=== PATIENT | male | born 1965 | race Two or more races ===

== ENCOUNTER 2021-01-23 11:50 | Emergency (ER) | payer OTHER ==
[~2021-01-23] VITALS: Ht 172.7 cm; Wt 86.2 kg
[~2021-01-23 11:50] MED LIST: IBUP100T38; OXYC5POW
[2021-01-23 12:12] VITALS: BP 148/79
--- NOTE | 2021-01-23 12:15 | NUR ---
PATIENT BIBS WITH C/O HEMORRHOIDS. PATIENT AWAKE, ALERT X4. NO SIGNS OF RESPIRATORY DISTRESS NOTED. RESPIRATIONS EVEN AND UNLABORED. AWAITING MD SOTO.
[2021-01-23] MEDS ORDERED: HYDR25SU33 RC (13:11)
[2021-01-23] MEDS ORDERED: DOCU-141 PO (13:11)
--- NOTE | 2021-01-23 13:21 | NUR ---
Patient discharged to home in stable condition. Written and verbal after care instructions given. Patient verbalizes understanding of instruction.
== END 2021-01-23 13:22 | disposition home or self-care (01) ==
LOC: ER 11:52
DX: K64.4 Residual hemorrhoidal skin tags (principal)

== ENCOUNTER 2021-03-22 17:48 | Emergency (ER) | payer OTHER ==
[~2021-03-22] VITALS: Ht 172.7 cm; Wt 86.2 kg
[~2021-03-22 17:48] MED LIST changes: +DOCU-141 PO; +HYDR25SU33 RC
[2021-03-22] MEDS ORDERED: NA PHOS,M-B/NA PHOS,DI-BA 1 EA ENEMA RC ONE ×2 (19:00→19:08)
[2021-03-22] MEDS ORDERED: MAGNESIUM HYDROXIDE 30 ML UDC PO ONE (19:00)
[2021-03-22] MEDS ORDERED: MAGNESIUM HYDROXIDE 30 ML UDC ONE (19:05)
--- NOTE | 2021-03-22 19:40 | NUR ---
ABD PAIN & CONSTIPATION X 4 DAYS PER PT. REPORTS HISTORY OF CONSTIPATION. PT IS ON MONITOR AND ALL VSS. MD WAS AT BEDSIDE FOR EVAL.
[2021-03-22] MEDS ORDERED: BISA-79 PO (20:32)
[2021-03-22 20:39] VITALS: BP 145/70
--- NOTE | 2021-03-22 20:39 | NUR ---
Patient discharged to home in stable condition. Written and verbal after care instructions given. Patient verbalizes understanding of instruction.
== END 2021-03-22 20:40 | disposition home or self-care (01) ==
LOC: ER 18:08
DX: K59.00 Constipation, unspecified (principal)

== ENCOUNTER 2023-09-06 18:57 | Emergency (ER) | payer OTHER ==
[~2023-09-06] VITALS: Ht 177.8 cm; Wt 113.4 kg
[~2023-09-06 18:57] MED LIST changes: +BISA-79 PO
[2023-09-06 21:21] VITALS: BP 134/88; TEMP 98; O2SAT 98
== END 2023-09-06 21:22 | disposition home or self-care (01) ==
LOC: ER 19:05
DX: F10.129 Alcohol abuse with intoxication, unspecified (principal); Z79.899 Other long term (current) drug therapy; Z88.1 Allergy status to other antibiotic agents; Y90.0 Blood alcohol level of less than 20 mg/100 ml
CPT/HCPCS: 82962-TC

== ENCOUNTER 2024-09-08 04:13 | Emergency (ER) | payer OTHER ==
[~2024-09-08] VITALS: Ht 175.3 cm; Wt 97.5 kg
[2024-09-08] MEDS ORDERED: IOHEXOL-350 100 ML VIAL IV ONE (04:44)
[2024-09-08] MEDS ORDERED: CT SWABBABLE VALVE TRANS SET 1 EA INFUS.SET MC ONE (04:44)
[2024-09-08] MEDS ORDERED: IV NS 0.9% 250 ML IV ONE (04:44)
[2024-09-08 06:00] LABS: CARBON DIOXIDE 24 mmol/L (21-32); CHLORIDE 107 mmol/L (98-107); POTASSIUM 3.8 mmol/L (3.5-5.1); SODIUM SERUM 140 mmol/L (136-145)
[2024-09-08 06:01] LABS: ALANINE AMINOTRANSFERASE 18 U/L (12-78); ALBUMIN 3.2 g/dL (3.4-5.0); ALKALINE PHOSPHATASE 60 U/L (46-116); ASPARTATE AMINOTRANSFERASE 17 U/L (15-37); BILIRUBIN,TOTAL 0.5 mg/dL (0.2-1.0); CREATININE 0.8 mg/dL (0.6-1.3); GLUCOSE 109 mg/dL (74-106); NT-PRO BNP 58 pg/mL (0-125); TOTAL PROTEIN, SERUM 6.6 g/dL (6.4-8.2); UREA NITROGEN, BLOOD 18 mg/dL (7-18)
[2024-09-08 06:02] LABS: ALCOHOL, BLOOD < 3 mg/dL (0-10)
[2024-09-08 06:13] LABS: BASOPHILS % (AUTO) 0.5 % (0.0-2.0); EOSINOPHILS % (AUTO) 14.9 % (0.0-6.0); HEMATOCRIT 36 % (39-51); HEMOGLOBIN 11.7 g/dL (13.5-17.5); LYMPHOCYTES # (AUTO) 1.2 K/uL (0.8-4.8); LYMPHOCYTES % (AUTO) 28.6 % (20.0-44.0); MEAN CORPUSCULAR HEMOGLOBIN 29 PG (26.0-33.0); MEAN CORPUSCULAR HGB CONC 33 g/dl (31.0-36.0); MEAN CORPUSCULAR VOLUME 89 fL (80-96); MONOCYTES # (AUTO) 0.5 K/uL (0.1-1.30); MONOCYTES % (AUTO) 11.2 % (2.0-12.0); NEUTROPHILS # (AUTO) 1.8 K/uL (1.8-8.9); NEUTROPHILS % (AUTO) 44.8 % (43.0-81.0); PLATELET COUNT (AUTO) 278 K/uL (150-450); RED BLOOD CELL COUNT(AUTO) 3.99 MIL/uL (4.5-6.0); RED CELL DISTRIBUTION WIDTH 20.1 % (11.5-15.0); WHITE BLOOD COUNT (AUTO) 4.1 K/uL (4.3-11.0)
[2024-09-08 06:14] LABS: EOSINOPHILS # (AUTO) 0.6 K/uL (0.0-0.7)
[2024-09-08 07:50] LABS: AMPHETAMINE, URINE NEGATIVE (NEGATIVE); BARBITURATE, URINE NEGATIVE (NEGATIVE); BENZODIAZEPINE, URINE NEGATIVE (NEGATIVE); CANNABINOID, URINE NEGATIVE (NEGATIVE); COCCAINE, URINE NEGATIVE (NEGATIVE); OPIATE, URINE NEGATIVE (NEGATIVE); PHENCYCLIDINE SCREEN,URINE NEGATIVE (NEGATIVE)
[2024-09-08 08:12] VITALS: BP 136/79; TEMP 98.3; O2SAT 99
[2024-09-08 08:18] LABS: APPEARANCE,URINE CLEAR (CLEAR); COLOR,URINE YELLOW (YELLOW)
[2024-09-08 08:19] LABS: PROTEIN,URINE NEGATIVE (NEGATIVE); UGLUCOSE NEGATIVE (NEGATIVE)
[2024-09-08 08:20] LABS: BILIRUBIN,URINE NEGATIVE (NEGATIVE); BLOOD, URINE N Ery/uL (NEGATIVE); KETONES,URINE N mg/dL (NEGATIVE); LEUKOCYTE ESTERASE ,URINE NEGATIVE (NEGATIVE); NITRITE, URINE NEGATIVE (NEGATIVE); UROBILINOGEN,URINE 0.2 EU/dL (0.2)
== END 2024-09-08 08:12 | disposition home or self-care (01) ==
LOC: ER 04:13
DX: R60.9 Edema, unspecified (principal); R06.00 Dyspnea, unspecified; C61 Malignant neoplasm of prostate; Z79.899 Other long term (current) drug therapy
CPT/HCPCS: 99285; 93005; 71045; 71275; 85025; 81003; 36415; 80053; 84484; 83880; 93970; 80320; 80307; J7050; Q9967; G0480